=== PATIENT | female | born 1960 | race Caucasian/White ===

== ENCOUNTER → 2024-06-15 07:14 | Outpatient (REF) | payer MEDICARE, BC, SELFPAY | LOC: HWRCS 07:14 | PROVIDERS: ATTENDING PHYSICIAN Internal Medicine Cardiovascular Disease; FAMILY PHYSICIAN Nurse Practitioner Family | DX: I10 Essential (primary) hypertension (principal); E78.00 Pure hypercholesterolemia, unspecified; I44.4 Left anterior fascicular block | CPT/HCPCS: 93306 ==

== ENCOUNTER → 2024-11-08 08:08 | Outpatient (REF) | payer MEDICARE, BC, SELFPAY | LOC: HWWDC 08:08 | PROVIDERS: ATTENDING PHYSICIAN Nurse Practitioner Family | DX: Z12.31 Encounter for screening mammogram for malignant neoplasm of breast (principal) | CPT/HCPCS: 77063; 77067 ==